=== PATIENT | male | born 1985 | race American Indian/Alaskan Native ===

== ENCOUNTER → 2019-12-31 | Outpatient (CLI) | payer BC | END | disposition home or self-care (01) | LOC: SLR 11:00 | PROVIDERS: ATTEND Internal Medicine | DX: G47.30 Sleep apnea, unspecified (principal) | CPT/HCPCS: 95810 ==

== ENCOUNTER 2020-01-20 11:00 | Outpatient (CLI) | payer BC | END 2020-01-20 11:01 | disposition home or self-care (01) | LOC: SLR 11:00 | PROVIDERS: ATTEND Internal Medicine | DX: G47.33 Obstructive sleep apnea (adult) (pediatric) (principal); R40.0 Somnolence | CPT/HCPCS: 95811 ==

== ENCOUNTER 2020-04-19 07:16 | Outpatient (CLI) | payer BC ==
--- NOTE | 2020-04-19 10:07 | Magnetic Resonance Report ---
MRI LEFT KNEE WITHOUT CONTRAST INDICATION / CLINICAL INFORMATION: Left knee instability and anterior knee pain, concern for medial meniscus tear. TECHNIQUE: Multiplanar, multisequence MR images were obtained. No contrast used. COMPARISON: None available. FINDINGS: ACL: No significant abnormality. PCL: No significant abnormality. DISTAL QUADRICEPS TENDON: No significant abnormality. PATELLAR TENDON: No significant abnormality. MEDIAL MENISCUS: No significant abnormality. LATERAL MENISCUS: No significant abnormality. POSTEROLATERAL CORNER: No significant abnormality. MCL: No significant abnormality. LCL: No significant abnormality. DISTAL IT BAND: No significant abnormality. PATELLOFEMORAL ALIGNMENT: No significant abnormality. ARTICULAR CARTILAGE: Focal full thickness fissure at the central sulcus of the trochlea seen only on series 2 image 17. Low signal intensity in the immediately adjacent cartilage is suggestive of soften ing. There is minimal underlying subchondral cystic change or edema. Mild chondrosis in the medial an d lateral tibiofemoral compartments. JOINT SPACE: Minimal effusion. No significant popliteal cyst. No intra-articular bodies. BONES: Early subchondral cystic change or a tiny focus of edema is seen underlying the cartilage fiss ure at the trochlear sulcus. No fracture. No osseous lesion. Incidental note of bipartite patella. SOFT TISSUES: No significant abnormality. ADDITIONAL FINDINGS: None. IMPRESSION: 1. Narrow, full-thickness fissure in the trochlear cartilage at the central sulcus. 2. Tiny reactive effusion. Report dictated by: Adam Sim MD Report dictated on: 04/19/2020 7:57 AM I have reviewed the images, agree with this report, and edited this report as needed. Signer Name: Johnathan Dalton MD Signed: 04/19/2020 10:02 AM Workstation Name: [id number]
== END 2020-04-19 07:17 | disposition home or self-care (01) ==
LOC: MRI 07:16
PROVIDERS: ATTEND Internal Medicine
DX: S83.242S Other tear of medial meniscus, current injury, left knee, sequela (principal); Q74.1 Congenital malformation of knee; M25.462 Effusion, left knee; X58.XXXS Exposure to other specified factors, sequela
CPT/HCPCS: 73721

== ENCOUNTER 2020-05-06 09:06 | Outpatient (CLI) | payer BC ==
[2020-05-06 09:55] LABS: Albumin 4.6 g/dL (3.9-5); Bilirubin,Direct 0.2 mg/dL (0-0.2)
[2020-05-06 10:23] LABS: Chol/HDL Ratio 4.38 %
== END 2020-05-06 09:07 | disposition home or self-care (01) ==
LOC: LAB 09:06
PROVIDERS: ATTEND Internal Medicine
DX: Z13.220 Encounter for screening for lipoid disorders (principal); R68.82 Decreased libido; R74.0 Nonspecific elevation of levels of transaminase and lactic acid dehydrogenase [LDH]
CPT/HCPCS: 36415; 80061; 80076